=== PATIENT | male | born 1980 | race Caucasian/White ===

== ENCOUNTER 2016-12-12 13:10 | Emergency (ER) | payer SELFPAY ==
[~2016-12-12] VITALS: Ht 188 cm; Wt 93.0 kg
[2016-12-12 13:12] VITALS: BP 150/82; PULSE 75; RESP 20; TEMP 98.2; O2SAT 98
[2016-12-12] MEDS ORDERED: HYDR-3533 PO (15:05)
--- NOTE | 2016-12-12 15:47 | PD ---
HPI Chief Complaint: Medication Refill Request Time Seen by Provider: 15:38 Travel History International Travel<30 days: No Contact w/Intl Traveler<30days: No Traveled to known affect area: No History of Present Illness HPI 36-year-old male presents to emergency department requesting a refill on his hydrocodone for history of right Achilles tendon rupture 3 years ago. He is down here on vacation and only packed two of his pain medication. He has a scheduled appointment back home on December 21 to follow-up with orthopedics for consultation for possible surgery. He has no other medical complaints. No other modifying factors or associated signs and symptoms. Allergies-Medications (Allergen,Severity, Reaction): Coded Allergies: No Known Allergies (Unverified , 12/12/16) Reported Meds & Prescriptions Reported Meds & Active Scripts Active Reported Lortab (Hydrocodone-Acetaminophen) 5-325 Mg Tab 1 Tab PO Q4H PRN Review of Systems Except as stated in HPI: all other systems reviewed are Neg Physical Exam Narrative GENERAL: Well-nourished, well-developed male patient, in no acute distress SKIN: Warm and dry. HEAD: Atraumatic. Normocephalic. EYES: Pupils equal and round. No scleral icterus. No injection or drainage. ENT: Mucosa pink and moist. Airway patent. NECK: Trachea midline. CARDIOVASCULAR: Regular rate. RESPIRATORY: No accessory muscle use. GASTROINTESTINAL: Flat. MUSCULOSKELETAL: Right lower extremity supple and non-tense with 2+ pedal pulses and sensory intact without erythema or edema; there is a deformity noted to the posterior aspect of the right heel; without erythema, edema; with tenderness on palpation. No obvious deformities. No clubbing. No cyanosis. No edema. NEUROLOGICAL: Awake and alert. Oriented 3. No obvious cranial nerve deficits. Motor grossly within normal limits. Normal speech. PSYCHIATRIC: Appropriate mood and affect; insight and judgment normal. Data Data Last Documented VS Vital Signs Date Time Temp Pulse Resp B/P Pulse Ox O2 Delivery O2 Flow Rate FiO2 12/12/16 13:12 98.2 75 20 150/82 98 Room Air MDM Medical Screen Exam Complete: Yes Emergency Medical Condition: No Differential Diagnosis Medication refill, pain management, narcotic seeking Narrative Course 36-year-old male requesting for pain medication refill for history of Achilles tendon rupture 3 years ago. Here on vacation and forgot his pain medications. Vital signs are stable and the patient is stable for outpatient follow-up and treatment. The patient has no urgent or emergent medical complaints. There is no emergent or urgent medical need at this time. I instructed the patient to follow up with their primary care provider. A medical screening exam was performed: At the time of evaluation the presenting medical condition was determined not to be of an emergent nature. The patient was given the option of receiving additional care, but declined. Patient was given options for additional community resources from which to obtain care. The Patient Has Been advised to seek medical attention for their presenting complaint. The patient has been advised to return to the ER at any time if an emergent condition develops. Primary Impression: Encounter for medical screening examination Condition: Stable Brittany Larson [employer] Dec 12, 2016 15:47
== END 2016-12-12 16:58 | disposition left against medical advice (07) ==
LOC: NEPK 13:10
DX: R68.89 Other general symptoms and signs (principal)
CPT/HCPCS: 99281